=== PATIENT | female | born 1955 | race Two or more races ===

== ENCOUNTER → 2025-02-09 | Outpatient (CLI) | payer OTHER, MEDICAID, SELFPAY ==
--- NOTE | 2025-02-09 13:20 | XR_ITS ---
Examination: Bone densitometry Date and time of exam:February 09, 2025, 1421 hours INDICATIONS: Menopause age 53, calcium one month, family history, sister, osteoporosis Technique: Lumbar spine and hip total bone mineralization values of an calculated. Peak reference and age match control results have been displayed. Findings: Lumbar spine total bone mineralization is0.699 gm/cm2. This is 3.2 standard deviations below peak reference. This is 1.1 standard deviations below age-matched controls. Hip total bone mineralization is 0.785 gm/cm2 This is 1.3 standard deviations below peak reference. This is 0.1 standard deviations above age-matched controls Impression: There is osteoporosis based on lumbar spine measurements. There is osteopenia based on hip measurements
== END | disposition home or self-care (01) ==
LOC: CDIM 13:59
PROVIDERS: Referring Provider Physician Assistant; Visit Provider Physician Assistant
DX: M81.0 Age-related osteoporosis without current pathological fracture (principal)
CPT/HCPCS: 77080